=== PATIENT | male | born 1980 | race Caucasian/White ===

== ENCOUNTER 2016-05-31 11:37 | Emergency (ER) | payer SELFPAY ==
[2016-05-31] MEDS ORDERED: SODIUM CHLORIDE 0.9% 1,000 ML ONE (14:43)
[2016-05-31 15:04] LABS: ABSOLUTE NEUTROPHIL COUNT 3.2 K/mm3 (1.8-7.7); BASO # 0.1 K/mm3 (0.0-0.2); BASO % 0.6 % (0.2-1.0); EOS # 0.5 (0.0-0.5); EOS % 5.8 % (0.9-2.9); HEMATOCRIT 40.9 % (32.0-52.0); HEMOGLOBIN 13.7 gm/l (14.0-18.0); IMM NEUT% 0.2 % (0-1); LYMPH # 3.4 (1.0-4.8); LYMPH % 42.2 % (15-45); MEAN CELL VOLUME 89.9 fl (80.0-94.0); MEAN CORPUSCULAR HEMOGLOBIN 30.1 pg (27.0-31.0); MEAN CORPUSCULAR HGB CONC 33.5 g/dl (33.0-37.0); MEAN PLATELET VOLUME 10.9 fl (7.4-10.4); MONO # 0.9 (0.0-0.8); MONO % 11.1 % (4-12); NEUT % 40.1 % (43-75); PLATELET COUNT 251 K/mm3 (130-400); RED CELL DISTRIBUTION WIDTH 12.4 % (11.5-14.5)
[2016-05-31 15:16] LABS: INR 0.97; PROTHROMBIN TIME 10.2 SECONDS (9.3-11.4)
[2016-05-31 15:24] LABS: ALB/GLOB RATIO 1.6 (>1.0); ALBUMIN 4.1 gm/dL (3.5-5.7); CALCIUM 9.2 mg/dL (8.6-10.3)
--- NOTE | 2016-05-31 15:25 | RAD ---
History: Cough. Comparison: None. Technique: 2 views Findings: The soft tissue and bony structures are unremarkable. The heart size is appropriate. No infiltrate, effusion or pneumothorax is observed. The hilar and mediastinal structures are normal. Impression: 1. A negative 2 view chest
== END 2016-05-31 16:02 | disposition home or self-care (01) ==
LOC: ED 11:37
DX: R19.7 Diarrhea, unspecified (principal); J40 Bronchitis, not specified as acute or chronic; F17.210 Nicotine dependence, cigarettes, uncomplicated; R04.2 Hemoptysis; B34.9 Viral infection, unspecified